=== PATIENT | female | born 1980 | race Caucasian/White ===

== ENCOUNTER 2025-07-15 11:43 | Emergency (ER) | payer BC, SELFPAY ==
--- OUTSIDE RECORDS SUMMARY | 2025-07-15 11:46 | XMS_ITS | Clinical Summary ---
Author Organization [facility] Address [address] [place] [address] Care Team Providers Care Director Global Intelligence Name Role Phone Unavailable Primary Care Provider Unavailabl e Source Comments Patient records contain information from all sites at [facility]. For routine questions regarding patient records, call [phone] during business hours, M-F 8:00 AM - 5:00 PM Central Time. Record requests for emergency care only can be directed to [phone] at any time.[facility] Allergies No known active allergies Medications No known medications Social History Tobacco Use Types Packs/Day Years Used Date Smoking Tobacco: Every Day Cigarettes Smokeless Tobacco: Never Tobacco Cessation:Ready to Q uit: Not Asked; Counseling Given: Not Answered Comments No Sex and Gender Information Value Date Recorded Sex Assigned at Not on file Legal Sex Female 4:52 PM CLAIM INSPECTOR Gender Identity Not on file Sexual Orientation Not on file Last Filed Vital Signs Vital Sign Reading Time Taken Comments Blood Pressure 103/71 10/07/2023 4:32 PM CLAIM INSPECTOR Pulse 100 10/07/2023 4:32 PM CLAIM INSPECTOR Temperature 36.8 C (98.2 F) 10/07/2023 4:32 PM CLAIM INSPECTOR Respiratory Rate 18 10/07/2023 4:32 PM CLAIM INSPECTOR Oxygen Saturation 100% 10/07/2023 4:32 PM CLAIM INSPECTOR Inhaled Oxygen Concentration - - Weight 60.6 kg (133 lb 9.6 oz) 10/07/2023 4:32 P M CLAIM INSPECTOR Height - - Body Mass Index - - Plan of Treatment Health Maintenance Due Date Last Done Comments Cervical/Vaginal Cancer Screening 1981 HIV Screening 1981 Hepatitis C Screening 1981 Lipid (Cholesterol) Screening 1981 Mammogram 1981 Tobacco Cessation counseling 1981 Hepatitis B Vaccines (1 of 3 - 19+ 3-dose series) 2000 Pneumococcal vaccine (0-49 years) (1 of 2 - PCV) 2000 DTaP,Tdap,and Td Vaccines (4 - Td or Tdap) 04/04/2023 04/04/2013, 07/06/2007, 05/17/1998 Depression Screening (Annual PHQ-2) 09/20/2024 COVID-19 Vaccine ( season) 2025 Influenza Vaccine (#1) 2025 9, 08/13/2018, 08/06/2017, Additional history exists HPV Vaccines Completed 05/02/2008, 0312/2007, 07/14/2007 IPV Vaccines Aged Out No longer eligi ble based on patient's age to complete this topic Insurance [facility] [place] [id number]
--- NOTE | 2025-07-15 11:49 | ED_ITS ---
HPI - General Adult General Date Seen: 07/15/25 Chief complaint: Extremity Pain/Injury, Lower Stated complaint: Ankle pain, Fall on stairs Time Seen by Provider: 07/15/25 11:49 History of Present Illness HPI narrative: 44 yo F who is generally healthy presenting to the ER today with left ankle pain, bruising, and swelling. She injured her ankle yesterday evening/last night. She was carrying her daughter down the steps when she either lost her balance or missed the last step and fell forward. She think she probably rolled her ankle in but does not remember exactly because the fall happened quickly. Since she was carrying her daughter she used her arms to protect her daughter and did not really shoulder cell from the fall. She injured her ankle but nothing else. She did not hit her head. She did not injure her knee or her hip. She has been having ankle pain with bruising and swelling. She has been having tremendous pain when she tries to bear weight so she has been using some crutches to keep weight off of it. She has been icing it which helps a lot with the pain and taking ibuprofen. At this point her pain is adequately well controlled. She is not having any numbness or pallor in her foot. No other injuries. Related Data Home Medications ?Medication ?Instructions ?Recorded ?Confirmed albuterol sulfate 2.5 mg/3 mL 2.5 mg inhalation Q4H SC N 06/28/25 06/28/25 (0.083 %) solution for nebulization cetirizine 10 mg capsule (All Day 10 mg PO DAILY PRN 1 07/15/25 Allergy (cetirizine)) Previous Rx's ?Medication ?Instructions ?Recorded albuterol sulfate 90 mcg/actuation 1 - 2 puff inhalati on Q4-6H PRN 06/28/25 aerosol inhaler shortness of breath or wheez ing #6.7 grams hydrocodone 5 mg-acetaminophen 325 1 - 2 tab PO Q4-6H PRN pain #10 07/15/25 mg tablet tabs Allergies Allergy/AdvReac Type Severity Reaction Status Date / Time amoxicillin Allergy Intermediate Rash Verified 07/15/25 11:53 seasonal pollen Allergy Intermediate congestion Uncoded 06/28/25 11:13 PFSH PFSH Social History Smoking Status: Current every day smoker Exam Narrative: Exam Narrative: Constitutional: Appears well-developed and well-nourished. Active. Very polite. Non-toxic appearing. HENT: Head: Atraumatic. No signs of injury. Nose: No nasal discharge. Mouth/Throat: Mucous membranes are moist. No trismus Eyes: Conjunctivae normal and EOM are normal. Pupils are equal, round, and reactive to light. Right eye exhibits no discharge. Left eye exhibits no discharge. No icterus. Neck: Normal range of motion. Neck supple. No stridor. Cardiovascular: Normal rate and regular rhythm. Strong DP and PT pulses. Normal brisk distal capillary refill. No bleeding. Superficial abrasion on the skin on the anterior ankle but no open fracture. Pulmonary/Chest: Effort normal. No stridor. No respiratory distress. Breathing easily Musculoskeletal: Normal except for her left ankle Normal range of motion. No edema. No tenderness. No deformity. Left lower extremity: Hip, femur, quad, hamstring, thigh are normal and nontender. Knee is normal and nontender. No bony tenderness, swelling, deformity. No tenderness of the proximal fibula or proximal tibia. Gastrocnemius, calf, Achilles is nontender. Tibial spine is nontender. The patient does have marked swelling and ecchymosis of her ankle especially around the lateral malleolus and is tender on the lateral> medial malleoli. Foot is normal inspection. No tenderness of the calcaneus and hindfoot. No tenderness of the midfoot and 5th proximal 5th metatarsal. Forefoot and toes are nontender. Intact distal toe wiggling. Intact distal sensory function on the dorsal 1st web space, medial and lateral foot, sole of the foot. Neurological: Alert. Normal strength. No cranial nerve deficit or sensory deficit. Coordination normal. GCS eye subscore is 4. GCS verbal subscore is 5. GCS motor subscore is 6. Skin: Ecchymosis of left ankle. Superficial abrasion on anterior left ankle. No other rash. Skin is warm. No rash noted. Const: Vital Signs, click to edit/add: Vital Signs - 24 hr 07/15/25 11:54 Temperature 97.8 F Pulse Rate [Pulse Oximeter] 96 Respiratory Rate 16 Blood Pressure [Ri ght Upper Arm] 136/68 Pulse Oximetry 96 Oxygen Delivery Me thod Room Air Course Vital Signs Vital signs: Initial Vital Signs Temperature 97.8 F 07/15/25 11:54 Temperature Source Temporal Artery Scan 07/15/25 11:54 Pulse Rate 96 07/15/25 11:54 Respiratory Rate 16 07/15/25 11:54 Blood Pressure 136/68 07/15/25 11:54 Blood Pressure Mean 90 07/15/25 11:54 Blood Pressure Position High-Fowlers 07/15/25 11:54 Pulse Oximetry 96 07/15/25 11:54 Oxygen Delivery Method Room Air 07/15/25 11:54 Vital Signs Temperature 97.8 F 07/15/25 11:54 Pulse Rate 96 07/15/25 11:54 Respiratory Rate 16 07/15/25 11:54 Blood Pressure 136/68 07/15/25 11:54 Pulse Oximetry 96 07/15/25 11:54 Oxygen Delivery Method Room Air 07/15/25 11:54 Temperature 97.8 F 07/15/25 11:54 Pulse Rate 96 07/15/25 11:54 Respiratory Rate 16 07/15/25 11:54 Blood Pressure 136/68 07/15/25 11:54 Pulse Oximetry 96 07/15/25 11:54 Oxygen Delivery Method Room Air 07/15/25 11:54 Medical Decision Making MDM Narrative Medical decision making narrative: This patient presents for evaluation of left ankle pain, bruising, and swelling after she tripped and fell on the steps last night.. Signs and symptoms are consistent with an ankle sprain. There are no signs of fracture on radiograph. The patients neurovascular status is normal. Knee exam is normal. I don't think this is a Maisonneuve injury or a intraosseous ligament injury based on the location of tenderness. A head to toe trauma exam is otherwise negative; the likelihood of other serious sequelae of trauma (spine, head, chest, abdomen, other extremities, pelvis) is low. Plan is for protected weightbearing, RICE treatment with ice 15-20 minutes every 3 hours, and an bracing. She already has appropriately fitting crutches. Patient will advance weightbearing and follow-up in 2-4 days. They will begin gentle ROM exercises. Precautions for return reviewed and questions answered. Imaging Data XR left ankle three views: Attestation: I have reviewed the pertinent imaging results. My impression: No acute fracture. Soft tissue swelling around the lateral malleolus Radiologist's impression: IMPRESSION: Soft tissue findings as above. No fracture or dislocation. Discharge Plan Discharge Clinical Impression: Left ankle sprain Patient Disposition: Home, Self-Care Condition: Stable Instructions: Ankle Sprain (DC), Crutch Instructions (ED), Ankle Stirrup Splint (ED), Ice Pack Application (ED) Additional Instructions: As we discussed, your x-rays look good today. Nothing broken. We suspect you have injure the ligaments on the outside of your ankle (an ankle sprain). This should heal over the next few days but if you are not making tremendous improvement, please follow-up with the [facility]. Call [phone] to make an ER follow-up appointment. You can use the prescription pain killer as needed but be careful because [place] can cause dizziness, drowsiness, constipation, and can be addictive. Its best use ice, rest, elevation, and [id number] medications such as Aleve or Tylenol first. Please come back to the ER right away if you have any concerns especially severe uncontrolled pain, numbness or pallor in your foot, or any other problems. Prescriptions: New hydrocodone-acetaminophen 5-325 mg tablet 1 - 2 tab PO Q4-6H PRN (Reason: pain) Qty: 10 0RF No Action albuterol sulfate 2.5 mg /3 mL (0.083 %) solution for nebulization 2.5 mg inhalation Q4H PRN albuterol sulfate 90 mcg/actuation HFA aerosol inhaler 1 - 2 puff inhalation Q4-6H PRN (Reason: shortness of breath or wheezing) Qty: 6.7 2RF All Day Allergy (cetirizine) 10 mg capsule 10 mg PO DAILY PRN Follow Up/Referrals: Provider,Not a Local [Primary Care Provider, Family Practice] Stand Alone Forms: [employer] Info Instructions
--- NOTE | 2025-07-15 11:52 | CRLHL7_ITS ---
For Patients: As a result of the Cures Act, medical imaging exams and procedure reports are released immediately into your electronic medical record. You may view this report before your referring provider. If you have questions, please contact your health care provider. INDICATION: Posttraumatic pain and swelling. COMPARISON: None available. TECHNIQUE: Three views of the left ankle. FINDINGS: Mineralization: Normal. Alignment: Normal. Bones and Joints: No fracture is identified. Soft Tissues: Anterolateral periarticular soft tissue swelling. Small posterior tibiotalar joint effusion. Edema is present within the pre Achilles fat pad. IMPRESSION: Soft tissue findings as above. No fracture or dislocation. Dictated by Teodoro Fish MD @ 07/15/2025 12:18:50 PM (Electronically Signed)
[2025-07-15 11:54] VITALS: BP 136/68; PULSE 96; RESP 16; TEMP 36.6; O2SAT 96; BMI 20.2
== END 2025-07-15 12:44 | disposition home or self-care (01) ==
PROVIDERS: Emergency Provider Emergency Medicine
DX: S93.402A Sprain of unspecified ligament of left ankle, initial encounter (principal); W10.9XXA Fall (on) (from) unspecified stairs and steps, initial encounter; X50.1XXA Overexertion from prolonged static or awkward postures, initial encounter
CPT/HCPCS: 73610; 99282; 99283